=== PATIENT | female | born 1955 | race Caucasian/White ===

== ENCOUNTER 2019-03-16 12:50 | Inpatient (IN) ==
[2019-03-16] MEDS ORDERED: NS 1,000 ML IV ONE (13:17)
[2019-03-16] MEDS ORDERED: MORPHINE IV ONE (13:17)
[2019-03-16] MEDS ORDERED: ZOFRAN IV ONE (13:18)
[2019-03-16 13:52] LABS: BASO# 0.03 X1000 (0.0-0.2); BASO% 0.3 % (0.0-0.8); EOS# 0.13 X1000 (0.0-0.7); EOS% 1.2 % (0.0-10.0); HEMATOCRIT 40.9 % (37.0-47.0); HEMOGLOBIN 14.3 g/dL (12.0-16.0); IMM GRAN# 0.15 X1000 (0.0-0.04); IMM GRAN% 1.4 % (0.0-0.5); LYMPH# 1.17 X1000 (1.2-3.4); MCH 28.9 PG (27-31); MCV 82.6 FL (81-99); MONO# 0.63 X1000 (0.11-0.59); MONO% 5.9 % (1.7-9.3); NEUT# 8.48 X1000 (1.4-6.5); NEUT% 80.2 % (42.2-75.2); PLT 289 X1000 (130-400); RBC 4.95 XMIL (4.2-5.4); RDW 13.3 % (11.5-14.5); WBC 10.59 X1000 (4.8-10.8)
[2019-03-16 14:03] LABS: INR 0.94; PROTIME 13.3 Seconds (11.0-16.0)
[2019-03-16 14:05] LABS: PTT 28.8 Seconds (22.3-41.8)
[2019-03-16 14:14] LABS: AGAP 13; ALB/GLOB RATIO 1.2; ALBUMIN 4.2 g/dL (3.5-5.0); ALKALINE PHOSPHATASE 122 U/L (32-104); BUN 12 mg/dL (8-22); CALCIUM 9.7 mg/dL (8.8-10.2); CHLORIDE 100 mmol/L (98-107); COSMO 285; CREATININE 0.7 mg/dL (0.5-0.9); ESTIMATED GFR > 60; GLUCOSE 297 mg/dL (70-104); GOT 24 U/L (10-30); GPT 24 U/L (10-36); POTASSIUM 4.1 mmol/L (3.5-5.1); SODIUM 137 mmol/L (136-145); TCO2 24 mmol/L (25-35); TOTAL BILIRUBIN 0.47 mg/dL (0.20-1.00); TOTAL PROTEIN 7.8 g/dL (6.3-8.3)
[2019-03-16 14:27] LABS: URINE SOURCE CLEAN CATCH
[2019-03-16 14:35] LABS: BILIRUBIN URINE NEGATIVE (NEGATIVE); BLOOD URINE NEGATIVE (NEGATIVE); COLOR STRAW; GLUCOSE URINE >1000 mg/dL (NEGATIVE); KETONE URINE NEGATIVE (NEGATIVE); LEUKOCYTES URINE NEGATIVE (NEGATIVE); NITRITE URINE NEGATIVE (NEGATIVE); PROTEIN URINE NEGATIVE (NEGATIVE); TURBIDITY URINE CLEAR (CLEAR); UR EPITHELIAL CELLS <10 /HPF (<10); URINE BACTERIA NEGATIVE /HPF; URINE RBC <10 /HPF (<10); URINE WBC <10 /HPF (<10); UROBILINOGEN URINE NORMAL (NORMAL)
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
--- NOTE | 2019-03-16 16:24 | EKG Report ---
Test Performed on : 03/16/2019 2:09:43 PM Test Reason : AFLUTTER Blood Pressure : / mmHG Vent. Rate : 068 BPM Atrial Rate : 312 BPM P-R Int : 000 ms QRS Dur : 082 ms QT Int : 414 ms P-R-T Axes : 038 053 091 degrees QTc Int : 440 ms Atrial flutter. Nonspecific T wave abnormality Abnormal ECG When compared with ECG of 23-AUG-2014 12:05, Atrial flutter. has replaced Sinus rhythm. Vent. rate has increased BY 40 BPM Nonspecific T wave abnormality now evident in Inferior leads Nonspecific T wave abnormality has replaced inverted T waves in Lateral leads QT has lengthened Unconfirmed Result
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
[2019-03-16] MEDS ORDERED: 1/2 NS 500 ML IV ONE ×2 (18:31)
[2019-03-16] MEDS ORDERED: ZOFRAN IV PRN (18:31)
[2019-03-16] MEDS ORDERED: MORPHINE IV PRN (18:31)
[2019-03-16] MEDS ORDERED: LIPITOR PO SCH (21:00)
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
[2019-03-16] MEDS: NORCO-7.5 PO PRN (22:27)
[2019-03-17] MEDS: NORCO-7.5 PO PRN (05:46)
[2019-03-17 06:19] LABS: BASO# 0.03 X1000 (0.0-0.2); BASO% 0.5 % (0.0-0.8); EOS# 0.13 X1000 (0.0-0.7); EOS% 2.2 % (0.0-10.0); HEMATOCRIT 38.1 % (37.0-47.0); HEMOGLOBIN 12.7 g/dL (12.0-16.0); LYMPH# 1.54 X1000 (1.2-3.4); LYMPH% 25.7 % (20.5-51.1); MCHC 33.3 g/dL (33-37); MONO% 11.7 % (1.7-9.3); MPV 10.2 FL (7.4-10.4); NEUT# 3.59 X1000 (1.4-6.5); NEUT% 59.9 % (42.2-75.2); PLT 268 X1000 (130-400); RBC 4.38 XMIL (4.2-5.4); RDW 13.7 % (11.5-14.5); WBC 5.99 X1000 (4.8-10.8)
[2019-03-17 06:22] LABS: AGAP 11; BUN 11 mg/dL (8-22); CALCIUM 8.9 mg/dL (8.8-10.2); CHLORIDE 104 mmol/L (98-107); COSMO 287; CREATININE 0.8 mg/dL (0.5-0.9); ESTIMATED GFR > 60; GLUCOSE 310 mg/dL (70-104); POTASSIUM 4.1 mmol/L (3.5-5.1); SODIUM 138 mmol/L (136-145); TCO2 23 mmol/L (25-35)
--- NOTE | 2019-03-17 07:43 | Diag Imaging Result Doc PS360 ---
EXAM: CHEST-2 VIEWS INDICATION: blunt chest trauma TECHNIQUE: 2 views COMPARISON: 08/23/2014 FINDINGS: There is subsegmental atelectasis and/or mild infiltrate at the right lung base. There are stable tiny calcified granulomata scattered bilaterally. The lungs are grossly clear, otherwise. There is no discrete pleural fluid collection or pneumothorax. The cardiomediastinal silhouette and central vasculature are grossly unremarkable. IMPRESSION: Mild bibasilar subsegmental atelectasis and/or mild infiltrate. Electronically signed by Ezra Resendez 03/17/2019 7:41 AM
[2019-03-17] MEDS ORDERED: ARICEPT PO SCH (09:00)
[2019-03-17] MEDS ORDERED: GLUCOPHAGE XR PO SCH (09:00)
[2019-03-17] MEDS ORDERED: COZAAR PO SCH (09:00)
[2019-03-17] MEDS ORDERED: NEURONTIN PO SCH (09:00)
[2019-03-17] MEDS ORDERED: SINGULAIR PO SCH (09:00)
[2019-03-17 11:46] VITALS: BP 129/56
--- NOTE | 2019-03-17 15:44 | GENERAL SURGERY PROGRESS NOTE ---
DATE: 03/17/2019 SUBJECTIVE: Ms. Hodges is doing generally well. She is sore, but has no respiratory complaints. Did not eat much, but her appetite is okay. LABORATORY: Her chemistry is okay. Lab work looks okay. Hemoglobin 12.7. Her chest x-ray looks fine. PLAN: We will allow her to go home. We will give her something for pain. I discussed with her the need to take a stool softener so she will be get constipated. She will return to see me in followup if needed. cc: Jonathan Rahman MD
== END 2019-03-17 12:32 | disposition home or self-care (01) | DRG 206 ==
LOC: SUPCPDRO → ED 12:50 → EDIPHOLD 16:49 → 4N 18:16
PROVIDERS: ADMIT Surgery; ATTEND Surgery
CPT/HCPCS: 70450; 71020; 71046; 71260; 72125; 74177; 80048; 80053; 81001; 82948; 83605; 84484; 85025; 85610; 85730; 93005; 96361; 96374; 96375; 99285; A9270; J2270; J2405; J7030; Q9967; XXXXX